=== PATIENT | female | born 1945 | race Caucasian/White ===

== ENCOUNTER → 2016-05-21 | Outpatient (CLI) | payer MEDICARE, BC ==
[~2016-05-21] MED LIST: ASA CHILDREN'S81 MG PO; AUGMENTIN875 MG PO; CALCIUM 600 +1 EAC3 PO; CENTRUM SILVER1 EAC1 PO; CRESTOR10 MG PO; DIOVAN HCT 160/1 TAB PO; HYDROCODON-ACE1 EAC4 PO; MAALOX DPS30 ML PO; METAMUCIL SF P3.4 GM PO; MIRALAX PACKET17 GM PO; SENOKOT S1 TAB PO; SYNTHROID75 MCG PO; TYLENOL DPS325 MG PO
== END | disposition home or self-care (01) ==
LOC: PTH.S 09:53
DX: Z01.818 Encounter for other preprocedural examination (principal)

== ENCOUNTER 2016-05-30 05:36 | Inpatient (IN) | payer MEDICARE, BC ==
[~2016-05-30] VITALS: Ht 162.6 cm; Wt 82.6 kg
[~2016-05-30 05:36] MED LIST changes: -HYDROCODON-ACE1 EAC4 PO
--- NOTE | 2016-05-31 12:55 | CO ---
ADMIT: 05/30/2016 RM/LOC: 510 [facility] MR#: [id number] [address] [facility] [address] [place] [id number] [address] [place] [id number] Consultation SEX: F AGE: 70 : 1945 DATE OF CONSULTATION: 05/30/2016 ATTENDING PHYSICIAN: Prabhakar Best CONSULTING PHYSICIAN: Kailash Maravilla MD REASON FOR CONSULTATION: Assistance with medical management. HISTORY OF PRESENT ILLNESS: The patient is a very pleasant, 70-year-old female. She has a past medical history of diabetes, hypertension, hyperlipidemia as well as recent issues with chronic/recurrent diverticulitis, who presented to [facility] today for a scheduled laparoscopic colon resection due to the chronic recurrent diverticulitis and I am asked to see her postoperatively by Dr. Best for assistance with medical management. Overall, the patient did very well in the OR. I am seeing her in her room. She denies any pain right now. States the pain is under good control. No nausea, vomiting, chest pain, or shortness of breath have been noted. The patient is anxious for the rehab process. PAST MEDICAL HISTORY: 1. Chronic recurrent sigmoid diverticulitis. 2. Hypertension. 3. Diabetes. 4. Hypothyroidism. 5. Osteopenia. 6. Hyperlipidemia. 7. History of osteoarthritis with prior knee surgery. 8. Chronic insomnia. 9. History of bilateral breast implants. 10.History of melanoma status post resection. 11.Prior history of hormone replacement therapy. 12.Status post hysterectomy. 13.Past history of asymptomatic cholelithiasis. ALLERGIES: CLINDAMYCIN AND FLAGYL. HOME MEDICATIONS: Include: 1. Diovan hydrochlorothiazide. 2. Synthroid. 3. Rosuvastatin. 4. Centrum Silver. 5. Calcium with vitamin D. 6. Baby aspirin. FAMILY HISTORY: Mother with diabetes. Father with colon cancer and bladder cancer. Sister with diabetes. Sister with coronary disease. Paternal grandmother also had diabetes. SOCIAL HISTORY: She has never been a smoker. Denies any alcohol use. Lives ADMIT: 05/30/2016 RM/LOC: 510 [facility] MR#: [id number] [address] [address] LACY PAIZ [address] [place] [address] Consultation SEX: F AGE: 70 : 1945 [place] town. . REVIEW OF SYSTEMS: Noted above all systems reviewed and negative. PHYSICAL EXAMINATION: VITAL SIGNS: 98.7, 85, 16, 135/63. She is saturating well on a just a couple liters by nasal cannula. GENERAL: This is a female, appears stated age. No apparent distress. Alert and oriented x3. Cooperative with examiner. HEENT: Normocephalic atraumatic. Mucosa is a little dry. NECK: Supple. LUNGS: Clear. HEART: Regular. ABDOMEN: Laparoscopic incisions are dressed. She is not distended right now. Bowel sounds present, but a little diminished. EXTREMITIES: Show no significant edema. NEUROLOGICAL: Cranial nerves intact. No focal deficits are noted. SKIN: Shows no rash. LAB WORK: Reviewed from May 21. Sodium 141, potassium 3.7, her BUN is 16, creatinine 0.9. Hemoglobin 13.5, white count 9.6, 266,000 platelets. ASSESSMENT/PLAN: 1. Chronic/recurrent sigmoid diverticulitis status post laparoscopic low anterior resection of the sigmoid colon. 2. Diabetes mellitus type 2, mostly diet controlled. 3. Hypertension. 4. Hyperlipidemia. 5. Hypothyroidism. 6. History of asymptomatic cholelithiasis. At this time, the patient is doing pretty well after surgery. Pain is controlled, no nausea is noted. She is on clears right now, we will get DVT prophylaxis started in the morning. PT and OT to evaluate her. Blood pressures look okay, but I am going to hold her JOHANNE, ARB until after I see her lab in the morning. Otherwise, we will try to get the remainder of her home medications restarted and follow her closely as an inpatient. Thank you very much for the consultation. Kailash Maravilla MD/ eulogio JOB #: [id number] CC: Prabhakar Best, Attending Physician Kailash Maravilla, Family Physician
--- NOTE | 2016-06-01 12:25 | OR ---
ADMIT: 05/30/2016 RM/LOC: 510 [facility] MR#: [id number] [address] [address] CHENCHO LACY [address] [place] [address] Operative/Delivery Room Report SEX: F AGE: 70 : 1945 SURGERY DATE: 05/30/2016 SURGEON: Prabhakar Best MD PREOPERATIVE DIAGNOSIS: Chronic diverticulitis. POSTOP DIAGNOSIS: Chronic diverticulitis. PROCEDURE: Laparoscopic low anterior resection of the sigmoid and proximal rectum. BIODIESEL PRODUCTION TECHNICIAN: Les Palma MD ANESTHESIA: General endotracheal tube anesthesia. ESTIMATED BLOOD LOSS: 50 mL or less. INDICATION FOR PROCEDURE: Please see my H and P. PROCEDURE IN DETAIL: After the risks, benefits, possible complications, and the alternatives have been explained, and informed consent had been obtained, the patient was taken back to the operating room, underwent general endotracheal tube anesthesia, and the surgical field was prepped and draped in a sterile manner. An infraumbilical incision was made. The Veress needle was inserted. The abdomen was insufflated with CO2. Once there was adequate insufflation, a 5-mm port was placed. The camera was placed through this port site. Under direct visualization, I then placed a 12-mm right lower quadrant port and a 5 mm port above this and one left-sided 5 mm port. You could definitely tell area of chronic diverticulitis that was stuck up to the left lateral wall went down into the pelvis. I started freeing some of this up using Harmonic Scalpel first laterally, freeing everything up, down into the pelvis. A part of the bowel was kind of stuck down there and kind of kinked and twisted on itself, got that all freed up as well. Opened the mesentery down into the pelvis. Picked an area that we thought was distal to all the bad disease and slowly scored up to the bowel there, cleaned off the mesentery until I could bring a 3.5 load of the Endo CHAR stapler across it and then took the superior hemorrhoidal vessel with a firing of the stapler. Slowly used the Harmonic Scalpel to clean things up of the mesentery as well. Freeing up the left lateral attachments in the gutter to have things freed up enough. I felt it would come down the pelvis and reach nicely and then grasped the Endo with a grasper. I made an incision in left lower quadrant at 5 mm port site, placed a wound protector and brought the bowel up and I chose an area proximally that looked quite good bowel for anastomosis. Placed the automatic pursestring across it. The disease bowel was cut and removed. I chose a 29 circular stapler. The anvil was placed here and tied. There were couple little tics that had to work around, place one stitch and pulled it back so it would be removed in the staple line, but otherwise I thought everything was good with good blood supply. It was returned to the abdominal cavity. We changed gloves, closed the left lower quadrant incision with a couple of 0 PDS ADMIT: 05/30/2016 RM/LOC: 510 [facility] MR#: [id number] [address] [place] [id number] LACY PAIZ [address] [place] [address] Operative/Delivery Room Report SEX: F AGE: 70 : 1945 sutures. At this point, the abdomen was re-insufflated. Dr. Palma went below, a couple of dilators were placed and then ultimately the 29 mm circular stapler. It came out just anterior to the staple line. Created a nice end-to- end 29 mm stapled anastomosis that went together nicely. Two good rings of tissue. Under no tension, the mesentery from the proximal bowel laid nicely there in the pelvis with good blood supply. Air tested it under water with no signs of any bubbles or leaking. Cleaned things up, cleaned up some irrigation. Injected 0.5% Marcaine in the incision sites for pain control. Closed the large port site in the right lower quadrant with an 0-Polysorb suture using the suture passer. Then, all the ports were removed. The skin was all closed with jill. She tolerated the procedure well, was extubated and taken to recovery room in stable and satisfactory condition. Prabhakar Best MD/ eulogio JOB #: [id number] CC: Prabhakar Best, Attending Physician Kailash Maravilla, Family Physician
[2016-06-03] MEDS ORDERED: HYDROCODON-ACE1 EAC4 PO (10:49)
--- NOTE | 2016-07-09 13:24 | DS ---
ADMIT: 05/30/2016 RM/LOC: 510 [facility] MR#: [id number] [address] [address] LACY PAIZ [address] [place] [address] Discharge Summary SEX: F AGE: 70 : 1945 ADMISSION DATE: 05/30/2016 DISCHARGE DATE: 06/02/2016 ADMITTING DIAGNOSIS: Chronic diverticulitis. DISMISSAL DIAGNOSES: 1. 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 2. Hypertension. 3. Diabetes. 4. Hypothyroidism. 5. Osteopenia. 6. Hyperlipidemia. 7. Osteoarthritis. 8. Insomnia. 9. Previous bilateral breast implants. 10.Melanoma, status post resection. 11.Hysterectomy, status post. 12.Asymptomatic cholelithiasis. PROCEDURES: Laparoscopic low anterior resection of the sigmoid and proximal rectum. HOSPITAL COURSE: The patient was an inpatient admit with routine med/surg orders. After surgery, the patient transferred to the floor without any complications. She was given a morphine PILLOW CLEANER for pain control and was started on clears. Dr. Kailash Maravilla was consulted to help in the medical management of this case. Overall, the patient recovered well while in the hospital. She did have some pain but was tolerating the morphine PILLOW CLEANER. A Mclean that was placed intraoperatively was pulled postop day #1. She was tolerating an advanced diet and had normal return of her bowel function. She was weaned off her PILLOW CLEANER and was tolerating oral pain medications. Vitals remained stable and the patient continued to recover well. She also had normal return of her bowel function and was able to discharge to home on 06/02/2016. ADMIT: 05/30/2016 RM/LOC: 510 [facility] MR#: [id number] [address] [place] [address] [place], [place] [address] LACY PAIZ [address] [place] [address] Discharge Summary SEX: F AGE: 70 : 1945 DISCHARGE INSTRUCTIONS: 1. Okay to shower. 2. Follow up with Dr. Best on 06/10 or 06/11, call for appointment. DISCHARGE MEDICATIONS: 1. Valsartan/hydrochlorothiazide 160/12.5 mg daily. 2. Rosuvastatin 10 mg at bedtime. 3. Levothyroxine 75 mcg daily. 4. Centrum Silver daily. 5. Calcium 600 mg plus D3 400 units daily. 6. Aspirin 81 mg at bedtime. 7. Hydrocodone/acetaminophen 5/325, 1-2 tabs q.4-6 hours p.r.n. pain. ALEE Mary / Prabhakar Best MD / vdg JOB #: [id number] CC: Prabhakar Best MD, Attending Physician Kailash Maravilla MD, Family Physician
== END 2016-06-02 11:08 | disposition home or self-care (01) | DRG 330 ==
LOC: WOR 05:36 → 5MS 05:36
PROVIDERS: ADMIT Surgery
DX: K57.20 Diverticulitis of large intestine with perforation and abscess without bleeding (principal); I10 Essential (primary) hypertension; E11.9 Type 2 diabetes mellitus without complications; E78.00 Pure hypercholesterolemia, unspecified; E03.9 Hypothyroidism, unspecified; E78.5 Hyperlipidemia, unspecified; E87.6 Hypokalemia; G47.00 Insomnia, unspecified; K80.20 Calculus of gallbladder without cholecystitis without obstruction; M85.80 Other specified disorders of bone density and structure, unspecified site; F51.04 Psychophysiologic insomnia; Z79.82 Long term (current) use of aspirin; Z82.49 Family history of ischemic heart disease and other diseases of the circulatory system; Z85.820 Personal history of malignant melanoma of skin